=== PATIENT | female | born 1970 | race Caucasian/White ===

== ENCOUNTER 2022-09-24 15:32 | Emergency (ER) | payer OTHER, SELFPAY ==
[2022-09-24 15:38] VITALS: BP 144/86; PULSE 93; RESP 16; TEMP 36.2; O2SAT 100
--- NOTE | 2022-09-24 16:19 | ED.FEMALEGU ---
HPI - Female Genitourinary General Chief complaint: Urogenital-Female Stated complaint: uti Time Seen by Provider: 09/24/22 16:19 Source: patient and RN notes reviewed Mode of arrival: ambulatory Limitations: no limitations History of Present Illness HPI Narrative: 52-year-old female presented for complaint of urinary frequency and pressure with urination since yesterday. She denies hematuria, dysuria, abdominal pain, flank pain, fevers or chills. States she took a home urinary test kit and it showed leukocytes. She endorses a history of bladder spasms for which she was taking medication, however she states this medication has been on hold for several years. She no longer follows with her urologist. Related Data Home Medications Medication Instructions Recorded Confirmed alprazolam 0.25 mg tablet 0.25 mg PO QHS PRN Anxiety 02/11/22 09/24/22 cholecalciferol (vitamin D3) 1,250 1,250 mcg PO MONTHLY 02/11/22 09/24/22 mcg (50,000 unit) capsule diclofenac sodium 75 mg 75 mg PO BID 02/11/22 09/24/22 tablet,delayed release fluticasone propionate 50 1 spray intranasal DAILY 02/11/22 09/24/22 mcg/actuation nasal spray,suspension lansoprazole 15 mg capsule,delayed 15 mg PO DAILY 02/11/22 09/24/22 release multivit with 1 tablet PO DAILY 02/11/22 09/24/22 rdhushgn-nkay-KL-lutein 8 mg iron-400 mcg-300 mcg tablet (Centrum Silver Women) trospium 20 mg tablet 20 mg PO BID 02/11/22 09/24/22 Allergies Allergy/AdvReac Type Severity Reaction Status Date / Time Penicillins Allergy Mild Unknown Verified 02/11/22 15:45 Sulfa (Sulfonamide Allergy Mild Unknown Verified 02/11/22 15:45 Antibiotics) triamcinolone Allergy Mild Unknown Verified 02/11/22 15:45 Review of Systems Review of Systems: CONSTITUTIONAL: Denies body aches, fever, chills, or sweats. CARDIOVASCULAR: Denies chest pain, palpitations, or edema. RESPIRATORY: Denies cough or dyspnea. GASTROINTESTINAL: Denies abdominal pain, nausea, vomiting, or diarrhea. GENITOURINARY: denies dysuria, hematuria, flank pain SKIN: Denies rash, itching, or wounds. MUSCULOSKELETAL: Denies back pain or myalgia. [facility]LY [facility] Past Medical History Medical History Acid reflux Anxiety Bladder spasms IBS (irritable bowel syndrome) Surgical History Surgical History H/O colectomy Family History Family History Father Lung cancer Malignant neoplasm of prostate Hypertension Mother Heart disease Hypertension Grandparent Lung cancer Heart disease Social History Social History Smoking status: Never smoker Second hand tobacco smoke exposure: No Alcohol intake: never Substance use: never Gender identity (if verbalized by the patient): Female Sexual Orientation (if Verbalized by the Patient): Straight or Heterosexual Spiritual care concerns: No Agree to blood products: Yes Comments At time of signature, I have reviewed and agree with nursing past medical, surgical, social and family history unless otherwise noted. Please see nursing chart for further information. There is no relevant family history pertinent to the presenting complaint Exam Narrative: GENERAL: Well-appearing ENT: Mucous membranes pink and moist. CHEST: Clear to auscultation. HEART: Regular rate and rhythm. ABDOMEN: Soft, nontender, nondistended, normal active bowel sounds. No CVA tenderness MUSCULOSKELETAL: No bony tenderness. SKIN: Warm, dry, no rash. NEURO: Alert and oriented x3. Gait steady. Course Course Emergency Course: Patient is aware of diagnosis, understands and agrees to treatment plan. Anticipatory guidance given. Patient agrees to follow-up as directed and is aware of reasons to seek care at the emergen
== END 2022-09-24 16:35 | disposition home or self-care (01) ==
PROVIDERS: Emergency Provider Nurse Practitioner Family
DX: R35.0 Frequency of micturition (principal); K21.9 Gastro-esophageal reflux disease without esophagitis; F41.9 Anxiety disorder, unspecified
CPT/HCPCS: 81003; 87086; 99213; G0463

== ENCOUNTER 2023-02-11 14:26 | Outpatient (CLI) | payer OTHER, SELFPAY ==
--- NOTE | ~2023-02-11 | XR_ITS ---
EXAM: XR abdomen/kub 1V DATE: 02/11/2023 14:44 HISTORY: K58.9 - IRS without diarrhea. LOW ABD PAIN . COMPARISON: None available. FINDINGS: Clear lung bases. Cholecystectomy clips. Normal bowel gas pattern. Enlarged liver. Pelvic phleboliths. Regional bones and soft tissues normal for age. IMPRESSION: No radiographic evidence of obstruction or ileus. Hepatomegaly. Reviewed, dictated and finalized at location K.
== END 2023-02-11 14:27 | disposition home or self-care (01) ==
PROVIDERS: Visit Provider Nurse Practitioner
DX: K58.9 Irritable bowel syndrome, unspecified (principal); R16.0 Hepatomegaly, not elsewhere classified
CPT/HCPCS: 74018

== ENCOUNTER 2023-02-12 12:18 | Outpatient (CLI) | payer OTHER, SELFPAY ==
[2023-02-12 12:47] LABS: Alanine Aminotransferase 28 U/L (6-35); Albumin Level 4.7 g/dL (3.5-5.1); Alkaline Phosphatase 64 U/L (38-126); Aspartate Amino Transferase 34 U/L (14-36); Bilirubin,Total 0.6 mg/dL (0.2-1.3)
== END 2023-02-12 12:19 | disposition home or self-care (01) ==
LOC: ANHLAB 12:19
PROVIDERS: Visit Provider Nurse Practitioner
DX: R16.0 Hepatomegaly, not elsewhere classified (principal)
CPT/HCPCS: 36415; 80076

== ENCOUNTER 2023-02-16 10:27 | Outpatient (CLI) | payer OTHER, SELFPAY ==
--- NOTE | ~2023-02-16 | US_ITS ---
US abdomen complete EXAMINATION: US Abdomen Complete INDICATION: Hepatomegaly PROCEDURE: Realtime High Resolution abdomen ultrasound. COMPARISON: [facility] dated 02/11/2023 FINDINGS: The gallbladder is surgically absent. Common bile duct measures 7.3 mm. Liver echotexture within normal limits without focal mass. Pancreas within normal limits. Pancreati c tail is obscured by bowel gas. Spleen is unremarkeable. Renal echotexture is within normal limits bilaterally without hydronephrosis, contour deforming mass or renal stone. Right kidney measures 9.5 cm. Left kidney measures 10.9 cm. Visualized aspects of the aorta and IVC are within normal limits. Portal vein is patent. No sonograph ic Belcher's sign indicated by the technologist. IMPRESSION: 1: Status post cholecystectomy with expected prominence of the common bile duct. Reviewed, dictated and finalized at location B. IMPRESSION: 1: Status post cholecystectomy with expected prominence of the common bile duct .
== END 2023-02-16 10:28 | disposition home or self-care (01) ==
LOC: ANHIMG 10:29
PROVIDERS: Visit Provider Nurse Practitioner
DX: R16.0 Hepatomegaly, not elsewhere classified (principal)
CPT/HCPCS: 76700